=== PATIENT | male | born 1955 | race Two or more races ===

== ENCOUNTER 2024-07-30 06:43 | Day surgery (SDC) | payer OTHER ==
[2024-07-30] MEDS ORDERED: DIPHENHYDRAMINE HCL 50 MG/ML VIAL 1ML IV ONE (12:45)
[2024-07-30] MEDS ORDERED: fentaNYL CITRATE 50 MCG/ML AMPUL IV PUSH ONE (12:45)
[2024-07-30] MEDS ORDERED: MIDAZOLAM HCL 2 MG/2 ML VIAL IV ONE (12:45)
== END 2024-07-30 12:15 | disposition home or self-care (01) ==
LOC: AMB-ENDOS 06:43
PROVIDERS: ATTEND Surgery
DX: D12.8 Benign neoplasm of rectum (principal); D12.5 Benign neoplasm of sigmoid colon